=== PATIENT | female | born 1980 | race Caucasian/White ===

== ENCOUNTER 2016-06-21 12:01 | Outpatient (CLI) | payer MEDICARE, MEDICAID ==
[2016-06-21 12:51] LABS: #Basophils 0.1 thou/uL (0.0-0.2); #Eosinphils 0.1 thou/uL (0.0-0.7); #Lymphocytes 1.7 thou/uL (1.20-3.40); #Monocytes 0.5 thou/uL (0.11-0.59); #Neutrophils 4.5 thou/uL (1.40-6.50); %Basophils 0.9 % (0.0-1.0); %Eosinophils 0.7 % (0.0-10.0); Hematocrit 43.2 % (36.0-47.0); Mean Platelet Volume 7.6 fL (7.4-10.4); Red Blood Cell (RBC) Count 4.67 mill/uL (4.20-5.40); White Blood Cell (WBC) Count 6.9 thou/uL (4.8-10.8)
[2016-06-21 13:26] LABS: ALT (SGPT) 13 U/L (0-55); AST (SGOT) 20 U/L (5-34); Alkaline Phosphatase 43 U/L (40-150); Anion Gap 14 mmol/L (10-20); BUN (Urea Nitrogen) 15 mg/dL (7.0-18.7); Bilirubin, Total 0.4 mg/dL (0.2-1.2); Calc. Creatinine Clearance 0 mL/min (70-130); Calcium 9.3 mg/dL (7.8-10.44); Carbon Dioxide 25 mmol/L (22-29); Chloride 106 mmol/L (98-107); Estimated GFR-MDRD 76; Globulin 2.6 g/dL (2.4-3.5); Protein, Total 6.9 g/dL (6.0-8.3)
== END 2016-06-21 12:02 | disposition home or self-care (01) ==
LOC: HPCALD 12:01
PROVIDERS: ATTEND Physician Assistant
DX: Z01.419 Encounter for gynecological examination (general) (routine) without abnormal findings (principal); Z11.3 Encounter for screening for infections with a predominantly sexual mode of transmission; R82.90 Unspecified abnormal findings in urine
CPT/HCPCS: 36415; 80053; 84443; 85025; 86592; 87077; 87086; 87186; 87389; 87480; 87491; 87510; 87591; 87660; 88142; G0123

== ENCOUNTER 2016-07-31 16:51 | Outpatient (CLI) | payer MEDICARE, MEDICAID | END 2016-07-31 16:52 | LOC: HPCALD 16:51 | PROVIDERS: ATTEND Physician Assistant | DX: A59.9 Trichomoniasis, unspecified (principal) | CPT/HCPCS: 87480; 87491; 87510; 87591; 87660 ==

== ENCOUNTER 2017-01-26 08:27 | Emergency (ER) | payer MEDICARE, OTHER ==
[2017-01-26 09:35] LABS: Bilirubin Negative (Negative); Blood, Urine Negative (Negative); Clarity Clear (Clear); Glucose, Urine (Dipstick) Negative (Negative); Leukocyte Trace (Negative); Nitrite Negative (Negative); Protein, Urine (Dipstick) Negative (Neg-Trace); Specific Gravity, Urine 1.015 (1.005-1.030); Urobilinogen 0.2 mg/dL (0.2-1.0); pH, Urine 8.5 (5.0-9.0)
[2017-01-26 09:37] LABS: ALT (SGPT) 14 U/L (8-55); AST (SGOT) 21 U/L (5-34); Albumin 4.4 g/dL (3.5-5.0); Alkaline Phosphatase 51 U/L (40-150); Anion Gap 13 mmol/L (10-20); BUN (Urea Nitrogen) 17 mg/dL (7.0-18.7); Bilirubin, Total 0.4 mg/dL (0.2-1.2); Calc. Creatinine Clearance 0 mL/min (70-130); Calcium 9.6 mg/dL (7.8-10.44); Carbon Dioxide 24 mmol/L (22-29); Chloride 107 mmol/L (98-107); Estimated GFR-MDRD 74; Glucose 90 mg/dL (70-105); Lipase 19 U/L (8-78); Potassium 3.8 mmol/L (3.5-5.1); Protein, Total 7.4 g/dL (6.0-8.3); Sodium 140 mmol/L (136-145)
[2017-01-26 09:46] LABS: #Basophils 0.1 thou/uL (0.0-0.2); #Eosinphils 0.1 thou/uL (0.0-0.7); #Lymphocytes 1.8 thou/uL (1.20-3.40); #Monocytes 0.4 thou/uL (0.11-0.59); #Neutrophils 2.1 thou/uL (1.40-6.50); %Basophils 1.2 % (0.0-1.0); %Eosinophils 1.5 % (0.0-10.0); %Lymphocytes 41.3 % (21.0-51.0); %Monocytes 8.2 % (0.0-10.0); %Neutrophils 47.8 % (42.0-75.0); Hemoglobin 14.3 g/dL (12.0-16.0); Mean Corpuscular HGB CONC 33.4 g/dL (32.0-36.0); Mean Corpuscular Hemoglobin 31.5 pg (27.0-31.0); Mean Corpuscular Volume 94.2 fl (81.0-99.0); Mean Platelet Volume 9.1 fL (7.4-10.4); Platelet Count 237 thou/uL (130-400); RBC Distribution Width 12.4 % (11.5-14.5); Red Blood Cell (RBC) Count 4.55 mill/uL (4.20-5.40); White Blood Cell (WBC) Count 4.4 thou/uL (4.8-10.8)
[2017-01-26 09:53] LABS: Bacteria/HPF Rare-Few HPF (None Seen); Crystals/HPF RARE AMORPH PHOS HPF (Negative); RBC/HPF None Seen HPF (0-3); Squamous Epithelial 0-3 HPF (0-3); WBC/HPF 0-3 HPF (0-3)
--- NOTE | 2017-01-26 19:32 | RAD ---
CHEST TWO VIEWS: 01/26/17 The heart is normal in size and the lungs are clear. No infiltrate or effusion was seen. Both lungs are fully inflated. There is no sign of acute thoracic disease to explain the patient's pain. Very m inor scoliosis is noted. The trachea is midline. IMPRESSION: No acute thoracic finding. POS: HOME
--- NOTE | 2017-01-26 19:48 | CT ---
CT CERVICAL SPINE 01/26/[address] of the cervical spine was performed for evaluation of neck pain. Axial slices were acquire d, then coronal and sagittal reconstructions were done. There is loss of the normal cervical lordosis which may be due to muscle spasm. No fracture, disloca tion, or disc space narrowing was seen. The C1 to dense distance is normal and the soft tissues are normal in thickness. At the C5-C6 level on the right side, there is a small area of increased density that is suspicious for a right paracentral disc protrusion. The CT does not show it optimally, but an MRI should be emilee gnostic. The findings should be correlated with clinical exam. Otherwise, there was no sign of disc abnormality, foraminal stenosis or central canal stenosis. Incidentally noted was some minor scarrin g in the apex of each lung. IMPRESSION: 1. Straightening of the cervical spine, possibly due to muscle spasm. 2. Somewhat suspicious for a right paracentral disc protrusion at C5-C6. MRI recommended for co nfirmation. POS: HOME
== END 2017-01-26 11:03 | disposition home or self-care (01) ==
LOC: BURERS 08:27
DX: M50.122 Cervical disc disorder at C5-C6 level with radiculopathy (principal)
CPT/HCPCS: 71020; 72125; 80053; 81003; 81015; 83690; 85025; 85379; 93005; 96360

== ENCOUNTER 2017-09-05 21:05 | Emergency (ER) | payer MEDICARE, MEDICAID ==
--- NOTE | 2017-09-05 21:49 | RAD ---
CHEST TWO VIEWS: 09/05/17 Comparison is made with a 01/26/17 study. The heart is normal in size. The mediastinum shows no widening or shift. The lungs are fully inflated and clear. No infiltrate or effusion was seen. No gross fractures were evident. IMPRESSION: No acute thoracic findings. POS: HOME
[2017-09-05] MEDS ORDERED: Ibuprofen 200 MG TAB ONE ×2 (22:06)
--- NOTE | 2017-09-05 22:54 | RAD ---
STERNUM: 09/05/17 No fracture or other sternal abnormality was appreciated. IMPRESSION: No acute findings POS: HOME
== END 2017-09-05 22:10 | disposition home or self-care (01) ==
LOC: BURERS 21:05
DX: S20.212A Contusion of left front wall of thorax, initial encounter (principal); S20.211A Contusion of right front wall of thorax, initial encounter; W19.XXXA Unspecified fall, initial encounter
CPT/HCPCS: 71046; 71120

== ENCOUNTER 2018-07-06 09:44 | Emergency (ER) | payer MEDICARE, MEDICAID | END 2018-07-06 10:07 | disposition home or self-care (01) | LOC: BURERS 09:44 | DX: J01.90 Acute sinusitis, unspecified (principal) | CPT/HCPCS: 99283 ==

== ENCOUNTER 2018-08-21 10:25 | Outpatient (CLI) | payer MEDICARE, MEDICAID ==
--- NOTE | 2018-08-21 18:54 | ULT ---
PELVIC ULTRASOUND WITH ENDOVAGINAL IMAGING 08/21/18 Transabdominal images were obtained initially then endovaginal imaging was done to see the adnexal re gions better. The uterus measured 9.5 x 4.5 x 6.7 cm. No masses were seen. The endometrium is borderline in thickne ss at 1.2 cm. The right ovary is 3.4 cm long and has blood flow. There are quite a view follicles in it, though not peripherally arranged. There are two either dominant follicles or small cysts measuring 1.7 and 1.5 cm respectively. The left ovary was 2.6 cm long and has blood flow. A dominant follicle or small cyst measuring 1.5 cm was seen in this ovary. There are numerous other follicles as well. IMPRESSION: No findings of concerning significance. Endometrial thickness borderline. Abundance of follicles, tadeo e of which are fairly dominant or could even be small cysts. I wound think the need for ultrasonograp hic followup is low unless the clinical presentation dictates otherwise. POS: HOME
== END 2018-08-21 10:26 | disposition home or self-care (01) ==
LOC: BURULT 10:25
PROVIDERS: ATTEND Physician Assistant
DX: N92.6 Irregular menstruation, unspecified (principal)
CPT/HCPCS: 76856

== ENCOUNTER 2020-03-31 09:42 | Outpatient (CLI) | payer MEDICARE, MEDICAID ==
--- NOTE | 2020-03-31 10:10 | RAD ---
2 VIEW CHEST: Date: 03/31/2020 INDICATION: Weight loss. COMPARISON: 09/05/2017. FINDINGS: The lungs are clear of infiltrate. No evidence of vascular congestion. There is a linear density, somewhat spiculated in the right mid lung which is more prominent than on the prior study. Suggest further evaluation with noncontrast CT chest. Heart and mediastinum unremarkable. Slight curvature of the thoracic spine to the right. Vertebral bodies maintain height and alignment i n the lateral view. IMPRESSION: Linear opacity in the right mid lung probably represents parenchymal stranding; however, it is more p rominent than on the prior study and there is suggestion of slight spiculation. Recommend further jeanne luation with noncontrast chest CT to further evaluate this density. RACHELE Villela
== END 2020-03-31 09:43 | disposition home or self-care (01) ==
LOC: BURRAD 09:42
PROVIDERS: ATTEND Physician Assistant
DX: R63.4 Abnormal weight loss (principal); R91.8 Other nonspecific abnormal finding of lung field
CPT/HCPCS: 71046

== ENCOUNTER 2021-04-23 10:23 | Emergency (ER) | payer MEDICARE, OTHER | END 2021-04-23 11:37 | disposition home or self-care (01) | LOC: BURERS 10:23 | DX: S16.1XXA Strain of muscle, fascia and tendon at neck level, initial encounter (principal); V43.52XA Car driver injured in collision with other type car in traffic accident, initial encounter | CPT/HCPCS: 99283 ==

== ENCOUNTER 2022-01-30 21:10 | Emergency (ER) | payer OTHER, MEDICARE, MEDICAID ==
[2022-01-30] MEDS ORDERED: Lidocaine 1% (PF) 30 ML VIAL ONE (21:30)
[2022-01-30] MEDS ORDERED: Bacitracin 1 PK ONE (21:54)
== END 2022-01-30 22:01 | disposition home or self-care (01) ==
LOC: BURERS 21:10
DX: S61.011A Laceration without foreign body of right thumb without damage to nail, initial encounter (principal); W25.XXXA Contact with sharp glass, initial encounter
CPT/HCPCS: 12001; J2001

== ENCOUNTER 2022-02-09 11:05 | Outpatient (CLI) | payer MEDICARE, OTHER | END 2022-02-09 11:06 | disposition home or self-care (01) | LOC: BURRAD 11:05 | PROVIDERS: ATTEND Physician Assistant | DX: S61.011D Laceration without foreign body of right thumb without damage to nail, subsequent encounter (principal); M79.644 Pain in right finger(s) ==